=== PATIENT | male | born 1970 | race Two or more races ===

== ENCOUNTER 2017-04-30 07:25 | Emergency (ER) | payer OTHER ==
[~2017-04-30] VITALS: Ht 170.2 cm; Wt 74.8 kg
--- NOTE | 2017-04-30 07:29 | NUR ---
PT BIB [facility] S/P WITNESSED SZ WHILE IN BED THIS MORNING. NO TRAUMA, NO ORAL TRAUMA. PER EMS, PT WAS POSTICTAL. NOW A/OX4, ANSWERING QUESTIONS, FOLLOWS COMMANDS. C/O HEADACHE. DENIES N/V. RESP EVEN UNLABORED. SKIN WARM NONDIAPHORETIC. ABLE TO TRANSFER FROM [place] TO ER BED WITH STEADY GAIT. IN ER BED 07 WITH SZ PRECAUTIONS IN PLACE. MOTHER AT BEDSIDE.
[2017-04-30] MEDS ORDERED: LEVE500T9 PO (07:41)
[2017-04-30] MEDS ORDERED: OXCA300T4 PO (07:41)
[2017-04-30] MEDS ORDERED: LEVETIRACETAM (250 MG) 250 MG TABLET PO ONE ×2 (07:46→08:00)
[2017-04-30] MEDS ORDERED: OXCARBAZEPINE 150 MG TABLET ONE (07:46)
[2017-04-30] MEDS ORDERED: OXCARBAZEPINE 150 MG TABLET PO ONE (08:00)
--- NOTE | 2017-04-30 09:49 | NUR ---
RESTING QUIETLY, NAD NOTED. NO FURTHER SZ ACTIVITY.
--- NOTE | 2017-04-30 12:28 | NUR ---
Patient discharged to home in stable condition. Written and verbal after care instructions given. Patient verbalizes understanding of instruction. AMBULATORY WITH STEADY GAIT. NO FURTHER SZ ACTIVITY NOTED.
[2017-04-30 12:30] VITALS: BP 116/53
== END 2017-04-30 12:30 | disposition home or self-care (01) ==
LOC: ER 07:29
DX: G40.909 Epilepsy, unspecified, not intractable, without status epilepticus (principal)
CPT/HCPCS: 93005; 99283; A4606; Z7610

== ENCOUNTER 2023-10-22 15:33 | Inpatient (IN) | payer MEDICAID, OTHER ==
[~2023-10-22] VITALS: Ht 167.6 cm; Wt 78.5 kg
[~2023-10-22 15:33] MED LIST: LEVE500T9 PO; OXCA300T4 PO
[2023-10-22] MEDS: ACETAMINOPHEN ES 500 MG TABLET PO ONE (17:00)
[2023-10-22] MEDS: IV NS 0.9% 1,000 ML BAG IV ONE (17:00)
[2023-10-22 17:25] LABS: BASOPHILS % (AUTO) 0.5 % (0.0-2.0); EOSINOPHILS % (AUTO) 0.8 % (0.0-6.0); HEMATOCRIT 42 % (39-51); HEMOGLOBIN 14.5 g/dL (13.5-17.5); LYMPHOCYTES # (AUTO) 0.8 K/uL (0.8-4.8); LYMPHOCYTES % (AUTO) 18.7 % (20.0-44.0); MEAN CORPUSCULAR HEMOGLOBIN 32 PG (26.0-33.0); MEAN CORPUSCULAR HGB CONC 34 g/dl (31.0-36.0); MEAN CORPUSCULAR VOLUME 93 fL (80-96); MONOCYTES # (AUTO) 0.4 K/uL (0.1-1.30); MONOCYTES % (AUTO) 9.7 % (2.0-12.0); NEUTROPHILS # (AUTO) 3.1 K/uL (1.8-8.9); NEUTROPHILS % (AUTO) 70.3 % (43.0-81.0); PLATELET COUNT (AUTO) 190 K/uL (150-450); RED BLOOD CELL COUNT(AUTO) 4.54 MIL/uL (4.5-6.0); WHITE BLOOD COUNT (AUTO) 4.5 K/uL (4.3-11.0)
[2023-10-22 17:35] LABS: CALCIUM, SERUM 8.6 mg/dL (8.5-10.1); CARBON DIOXIDE 27 mmol/L (21-32); CHLORIDE 103 mmol/L (98-107); CREATININE 0.9 mg/dL (0.6-1.3); GLUCOSE 102 mg/dL (74-106); SODIUM SERUM 137 mmol/L (136-145); UREA NITROGEN, BLOOD 11 mg/dL (7-18)
[2023-10-22 17:37] LABS: PARTIAL THROMBOPLASTIN TIME 25.1 SEC (24.3-34.3); PROTHROMBIN TIME 10.3 SECS (9.2-11.1)
[2023-10-22 17:41] LABS: ALANINE AMINOTRANSFERASE 104 U/L (12-78); ALBUMIN 3.9 g/dL (3.4-5.0); ALCOHOL, BLOOD < 3 mg/dL (0-10); ALKALINE PHOSPHATASE 61 U/L (46-116); ASPARTATE AMINOTRANSFERASE 52 U/L (15-37); BILIRUBIN,DIRECT 0.1 mg/dL (0.0-0.2); BILIRUBIN,TOTAL 0.3 mg/dL (0.2-1.0); TOTAL PROTEIN, SERUM 7.8 g/dL (6.4-8.2)
[2023-10-22] MEDS ORDERED: ACETAMINOPHEN ES 500 MG TABLET ONE (17:49)
[2023-10-22 19:21] LABS: AMPHETAMINE, URINE NEGATIVE (NEGATIVE); BARBITURATE, URINE NEGATIVE (NEGATIVE); BENZODIAZEPINE, URINE NEGATIVE (NEGATIVE); CANNABINOID, URINE NEGATIVE (NEGATIVE); COCCAINE, URINE NEGATIVE (NEGATIVE); OPIATE, URINE NEGATIVE (NEGATIVE); PHENCYCLIDINE SCREEN,URINE NEGATIVE (NEGATIVE)
[2023-10-22] MEDS ORDERED: LEVE100023 PO (19:29)
[2023-10-22] MEDS ORDERED: LATA2.5D15 EACHEYE (19:30)
[2023-10-22] MEDS ORDERED: DIVA-76 PO (19:30)
[2023-10-22] MEDS ORDERED: LACO200T2 PO (19:30)
[2023-10-22] MEDS ORDERED: ZONI100C31 PO (19:30)
[2023-10-22] MEDS ORDERED: ENOXAPARIN SODIUM 80 MG/0.8 ML DISP.SYRIN SQ ONE (20:49)
[2023-10-22] MEDS: ENOXAPARIN SODIUM 80 MG/0.8 ML DISP.SYRIN SQ ONE (20:50)
[2023-10-22 21:00] VITALS: BP 121/75; TEMP 97.9; O2SAT 96
[2023-10-22] MEDS ORDERED: ONDANSETRON HCL/PF 4 MG/2 ML VIAL IVP PRN (21:30)
[2023-10-22] MEDS ORDERED: Z GUARD REMEDY 4 OZ OINT TP PRN (21:30)
[2023-10-22] MEDS: LATANOPROST EYE DROP 0.005% 2.5 ML BOTTLE EACHEYE SCH (22:00)
[2023-10-23] VITALS: BP 104/59; TEMP 98; O2SAT 95; O2SAT 96
[2023-10-23] MEDS: LORAZEPAM INJ 2 MG/ML VIAL IV ONE (00:13)
[2023-10-23] MEDS: IV NS 0.9% 1,000 ML IV PRN (00:29)
[2023-10-23 03:44] LABS: BASOPHILS % (AUTO) 0.3 % (0.0-2.0); EOSINOPHILS # (AUTO) 0.1 K/uL (0.0-0.7); HEMATOCRIT 40 % (39-51); HEMOGLOBIN 13.7 g/dL (13.5-17.5); LYMPHOCYTES # (AUTO) 1.6 K/uL (0.8-4.8); LYMPHOCYTES % (AUTO) 29.9 % (20.0-44.0); MEAN CORPUSCULAR HEMOGLOBIN 33 PG (26.0-33.0); MEAN CORPUSCULAR HGB CONC 34 g/dl (31.0-36.0); MEAN CORPUSCULAR VOLUME 96 fL (80-96); MONOCYTES # (AUTO) 0.6 K/uL (0.1-1.30); MONOCYTES % (AUTO) 10.5 % (2.0-12.0); NEUTROPHILS # (AUTO) 3.2 K/uL (1.8-8.9); NEUTROPHILS % (AUTO) 58.3 % (43.0-81.0); PLATELET COUNT (AUTO) 175 K/uL (150-450); RED BLOOD CELL COUNT(AUTO) 4.17 MIL/uL (4.5-6.0); RED CELL DISTRIBUTION WIDTH 13.7 % (11.5-15.0); WHITE BLOOD COUNT (AUTO) 5.5 K/uL (4.3-11.0)
[2023-10-23 03:57] LABS: CREATININE 0.8 mg/dL (0.6-1.3); MAGNESIUM 1.9 mg/dL (1.8-2.4); POTASSIUM 3.8 mmol/L (3.5-5.1)
[2023-10-23 04:00] VITALS: BP 108/78; TEMP 97.9; O2SAT 78; O2SAT 98
[2023-10-23] MEDS: LACOSAMIDE 50 MG TABLET PO SCH (08:22)
[2023-10-23] MEDS: ASPIRIN EC 81 MG TABLET.DR PO SCH (08:35)
[2023-10-23] MEDS: ATORVASTATIN 10 MG TABLET PO SCH (08:35)
[2023-10-23] MEDS: DIVALPROEX SODIUM 250 MG TABLET.DR PO SCH (08:35)
[2023-10-23] MEDS: LEVETIRACETAM (250 MG) 250 MG TABLET PO SCH (08:35)
[2023-10-23] MEDS: LOSARTAN POTASSIUM 50 MG TABLET PO SCH (08:41)
[2023-10-23] MEDS ORDERED: ENOXAPARIN SODIUM 80 MG/0.8 ML DISP.SYRIN SQ SCH (09:00)
[2023-10-23] MEDS: ZONISAMIDE 100 MG CAPSULE PO SCH (09:22)
[2023-10-23] MEDS: METOPROLOL TARTRATE 50 MG TABLET PO SCH (12:51)
[2023-10-23 20:00] VITALS: BP 98/63; TEMP 98; O2SAT 100
[2023-10-24] VITALS: BP 107/68; TEMP 98.2; O2SAT 98
[2023-10-24 04:00] VITALS: BP 94/66; TEMP 97.8; O2SAT 100
[2023-10-24 07:28] LABS: CALCIUM, SERUM 8.6 mg/dL (8.5-10.1); CREATININE 0.8 mg/dL (0.6-1.3); MAGNESIUM 2.2 mg/dL (1.8-2.4); PHOSPHORUS 3.7 mg/dL (2.5-4.9); POTASSIUM 4.2 mmol/L (3.5-5.1)
[2023-10-24 07:45] LABS: BASOPHILS % (AUTO) 0.9 % (0.0-2.0); EOSINOPHILS # (AUTO) 0.1 K/uL (0.0-0.7); EOSINOPHILS % (AUTO) 2.3 % (0.0-6.0); HEMATOCRIT 45 % (39-51); HEMOGLOBIN 15.2 g/dL (13.5-17.5); LYMPHOCYTES # (AUTO) 2.2 K/uL (0.8-4.8); LYMPHOCYTES % (AUTO) 39.8 % (20.0-44.0); MEAN CORPUSCULAR HEMOGLOBIN 33 PG (26.0-33.0); MEAN CORPUSCULAR HGB CONC 34 g/dl (31.0-36.0); MEAN CORPUSCULAR VOLUME 98 fL (80-96); MONOCYTES # (AUTO) 0.5 K/uL (0.1-1.30); MONOCYTES % (AUTO) 9.5 % (2.0-12.0); NEUTROPHILS # (AUTO) 2.6 K/uL (1.8-8.9); NEUTROPHILS % (AUTO) 47.5 % (43.0-81.0); PLATELET COUNT (AUTO) 194 K/uL (150-450); RED BLOOD CELL COUNT(AUTO) 4.56 MIL/uL (4.5-6.0); RED CELL DISTRIBUTION WIDTH 13.7 % (11.5-15.0); WHITE BLOOD COUNT (AUTO) 5.4 K/uL (4.3-11.0)
[2023-10-24] MEDS ORDERED: CT SWABBABLE VALVE TRANS SET 1 EA INFUS.SET MC ONE (07:59)
[2023-10-24] MEDS ORDERED: IV NS 0.9% 250 ML IV ONE (07:59)
[2023-10-24] MEDS ORDERED: IOHEXOL-350 100 ML VIAL IV ONE (07:59)
[2023-10-24 08:41] LABS: LYMPHOCYTES % (MANUAL) 35 % (16-48); MONOCYTES % (MANUAL) 12 % (0-11.0); NEUTROPHILS % (MANUAL) 53 (42-76); PLATELET ESTIMATE ADEQUATE
[2023-10-24] MEDS: ACETAMINOPHEN 325 MG TABLET PO PRN (09:29)
[2023-10-24 11:30] VITALS: BP 96/67; TEMP 98.9; O2SAT 96
[2023-10-24 12:00] VITALS: BP 109/74
[2023-10-24] MEDS ORDERED: METO50TA16 PO (14:55)
[2023-10-24] MEDS ORDERED: LOSA50TA39 PO (14:55)
== END 2023-10-24 18:46 | disposition home or self-care (01) | DRG 53 ==
LOC: ER 15:40 → TELE 20:52
PROVIDERS: ADMIT Nurse Practitioner Acute Care; ATTEND Nurse Practitioner Acute Care
DX: G40.909 Epilepsy, unspecified, not intractable, without status epilepticus (principal); I21.4 Non-ST elevation (NSTEMI) myocardial infarction; S09.90XA Unspecified injury of head, initial encounter; Y04.8XXA Assault by other bodily force, initial encounter; Y92.9 Unspecified place or not applicable; Z79.899 Other long term (current) drug therapy
CPT/HCPCS: 36415; 70450-TC; 75574; 80048-TC; 80061-TC; 80076-TC; 83735-TC; 84100-TC; 84484-TC; 85025-TC; 85730-TC; 87081-TC; 93307-TC; A4223; G0378; G0480; J1650; J2060; J7030; J7050; Q9967